=== PATIENT | male | born 1955 | race Caucasian/White ===

== ENCOUNTER 2019-08-26 12:21 | Emergency (ER) | payer OTHER ==
[~2019-08-26] VITALS: Ht 182.9 cm; Wt 90.0 kg
[~2019-08-26 12:21] MED LIST: FAMO-96 PO; PANT40TA3 PO
[2019-08-26 12:46] VITALS: Ht 182.9 cm; Wt 90.0 kg
[2019-08-26] MEDS ORDERED: AL HYDROX/MG HYDROX/SIMETH 30 ML CUP PO ONE (15:30)
[2019-08-26 15:53] VITALS: BP 132/83; PULSE 81; RESP 20
[2019-08-26] MEDS ORDERED: FAMOTIDINE 20 MG TAB PO ONE (16:00)
== END 2019-08-26 15:54 | disposition home or self-care (01) ==
LOC: E/R 12:21
DX: R07.2 Precordial pain (principal); R40.2142 Coma scale, eyes open, spontaneous, at arrival to emergency department; R40.2252 Coma scale, best verbal response, oriented, at arrival to emergency department; R40.2362 Coma scale, best motor response, obeys commands, at arrival to emergency department
CPT/HCPCS: 71045; 80048; 84484; 85025; 93005